=== PATIENT | female | born 2000 | race Caucasian/White ===

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

== ENCOUNTER 2021-05-01 07:24 | Emergency (ER) | payer OTHER, MEDICAID, SELFPAY ==
[2021-05-01 07:28] VITALS: BP 149/85; PULSE 72; RESP 16; TEMP 36.8; O2SAT 99
--- NOTE | 2021-05-01 07:30 | DI.RAD_ITS ---
Exam(s) XR LUMBAR SPINE AP, LAT EXAM: XR LUMBAR SPINE AP, LAT CLINICAL HISTORY: lower back pain, new. TECHNIQUE: 2D digital imaging was performed. COMPARISON: No exams were available for comparison FINDINGS: No evidence of fracture or listhesis. No pars defects. Sacroiliac joints appear unremarkable. No d isc space narrowing. Bone density normal IMPRESSION: No significant radiographic findings these three views of the lumbosacral spinal column. DATA REPOSITORY: RADIATION DOSE DELIVERED:
--- NOTE | 2021-05-01 07:44 | ED.GENADUL_ITS ---
Discharge Plan Disposition Patient Disposition: HOME Condition: Improving Discharge Details Clinical Impression: Spasm of lumbar paraspinous muscle Primary Care Provider: Marylou Ramirez ED Provider: Joo Krause Home Meds and New Rx's Prescriptions: New methocarbamol 500 mg tablet See Rx Instructions .ROUTE .COMPLEX PRN (Reason: Back pain or spasm) 5 Days Qty: 20 RF: 0 Continued (DME) Aerochamber MV Spacer See Rx Instructions .ROUTE .MEDSUPPLY Qty: 1 RF: 0 Flovent HFA 110 mcg/actuation HFA aerosol inhaler 1 puff inhalation BID Qty: 12 RF: 6 albuterol sulfate [ProAir HFA] 90 mcg/actuation HFA aerosol inhaler 2 puff inhalation 6XD PRN (Reason: shortness of breath or wheezing) Qty: 8.5 RF: 3 Kyleena 17.5 mcg/24 hrs (5 yrs) 19.5 mg intrauterine device 1 device IY ONCE RF: 0 escitalopram oxalate [Lexapro] 10 mg tablet 10 mg PO DAILY Qty: 30 RF: 1 Discharge Instructions Instructions: Muscle Spasm (ED) Additional Instructions: Tylenol and/or ibuprofen as needed for pain. May use methocarbamol as needed for pain and/or muscular spasm. See enclosed work note. Return to the ER for worsening pain, numbness or tingling of the lower extr emity, new weakness, or any other acute concerns. Follow-up with your regular doctor if not improved in 10 to 14 days time. 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 She then felt spasm which persisted for minutes and then was able to walk normally her car present to the ER. She has not been ill, has been taking her control pills states she is not . There is no radiation of the pain to the legs and there is no numbness or weakness. On exam she has reproducible muscular pain and spasm. Differential diagnosis would include cystic bony lesion, muscular spasm, less likely a disc bulge. Patient referred for x-ray, given Lidoderm patch, acetaminophen and methocarbamol. X-ray without evidence of process. Will hold patient out of work for 3 days, light duty for 10 days. Discussed with her home management including nonsteroidal and music, Lidoderm patches, carbo mall. She is stable and appropriate for discharge home time. HPI General Mode of arrival: ambulatory . Date/Time Provider Initiated Documentation: 05/01/21 07:34 . Limitations to Documentation: no limitations . Information obtained by: patient . History of Present Illness 20 year old F presents to the emergency department with the chief complaint of Low back pain, described as moderate, Quality is described as constant, Patient reports no radiation. Patient started experiencing this minute(s) and it has been constant. Rest improves symptom(s), Movement worsens symptoms . Patient notes other (No numbness, no radiation to the legs.); denies fever/chills, headaches, rash and weakness. Patient did receive the following treatments prior to arrival, none Related Data Home Medications Medication Instructions Recorded Confirmed levonorgestrel 1 device IY ONCE 04/13/19 05/01/21 inhalational spacing device #1 ea 11/11/20 03/21/21 albuterol sulfate 90 mcg/actuation 2 puff INHALATION 6XD PRN #8.5 g 01/31/21 05/01/21 aerosol inhaler fluticasone propionate 110 1 puff INHALATION BID #12 g 01/31/21 05/01/21 mcg/actuation HFA aerosol inhaler escitalopram oxalate 10 mg tablet 10 mg PO DAILY #30 tab 03/21/21 05/01/21 methocarbamol See Rx Instructions .ROUTE 05/01/21 .COMPLEX PRN 5 Days #20 tab Previous Rx's Medication Instructions Recorded inhalational spacing device #1 ea 11/11/20 albuterol sulfate 90 mcg/actuation 2 puff INHALATION 6XD PRN #8.5 g 01/31/21 aerosol inhaler fluticasone propionate 110 1 puff INHALATION BID #12 g 01/31/21 mcg/actuation HFA aerosol inhaler escitalopram oxalate 10 mg tablet 10 mg PO DAILY #30 tab 03/21/21 methocarbamol See Rx Instructions .ROUTE 05/01/21 .COMPLEX PRN 5 Days #20 tab Allergies Allergy/AdvReac Type Severity Reaction Status Date / Time No Known Allergies Allergy Verified 05/01/21 07:30 General Stated Complaint: Nk/Back Pain LON: 3 Review of Systems Narrative: Taking medications including control, not. No radiation of pain. No other recent illness. 8 systems reviewed and otherwise negative. PFSH All Active Problems (Updated 05/01/21 @ 07:49 by Joo Krause MD) Spasm of lumbar paraspinous muscle (Acute) Marijuana abuse (Acute) Smoking addiction (Acute) Wheezing (Acute) Anxiety (Chronic) IUD surveillance (Acute) Peritonsillar cellulitis (Acute) 07/22 with ENT eval recurrent 08/22 Elevated TSH (Chronic) Normal t4. Called and dicussed with endo. no intervention needed at this time. Medical History History of chicken pox age 7-8 years Surgical History H/O peritonsillar abscess drainage Hx of tonsillectomy Family History Other ALS (amyotrophic lateral sclerosis) paternal Alcohol abuse paternal, maternal Essential hypertension paternal Heart disease paternal- cardiomyopathy, SIA-goes thru male line cousin with SVT Hyperlipidemia PGM Mental disorder pat uncle- anxiety, pat great uncle committed suicide Myocardial infarction PGF, mat side Stroke pat great GF Cardiomyopathy PGF- SIA, all his siblings also Asthma paternal Brother Asthma outgrown Father Hyperlipidemia Social History Smoking/Tobacco Use Status: Former Tobacco Use Second Hand Exposure: Yes Smoking risk assessment performed?: Yes Alcohol Intake: current Alcohol Intake frequency: holidays/special occasions only Drug use: Daily Substance use type: marijuana Household members: family Education Level: college Details: Will be freshman fall 2020 Pets and animals: Yes (1 cat) Pets and animals: cat(s) Do you feel safe at home: Yes Do you feel safe in your relationship?: Yes Female Reproductive History Menstrual Age of Menarche: 14 control method: progestin IUCD History History 0 Para Hx # Term Pregnancies Multiple births Hx # Pregnancies Ectopic pregnancies AB induced Hx Number of Living Children AB spontaneous Exam Narrative Exam Narrative: GEN: awake, alert, oriented 3. Pleasant, well groomed, interactive. HEAD: Normocephalic, atraumatic ENT: Mucous membranes moist, oropharynx unremarkable, External ear exam unremarkable EYES: PERRL, EOMI NECK: Full ROM, no YVROSE, no menigismus CHEST/RESP: Nontender, clear to auscultation bilateral, no wheeze/rhonchi/rales CARDIOVASCULAR: RRR, no murmur, rub sherri. 2+ Rad pulse bilateral ABDOMEN: Soft, nontender, no mass. +Bowel sounds Back: At the upper lumbar spine there is paraspinous muscular spasm and pain with palpation. There is no midline step-off or deformity. No pain with palpation of sciatic notch bilaterally. EXT: Full ROM, no edema, no rash Neuro: Grossly normal neurologic exam, conversant, interactive. Psych: Speech fluent, thoughts congruent, affect normal Course Vital Signs Vital signs: Vital Signs Temperature 36.8 C 05/01/21 07:28 Pulse 72 05/01/21 07:28 Respiratory Rate 16 05/01/21 07:28 Blood Pressure 149/85 H 05/01/21 07:28 Pulse Oximetry 99 05/01/21 07:28 Temperature 36.8 C 05/01/21 07:28 Temperature Source Temporal Artery Scan 05/01/21 07:28 Pulse 72 05/01/21 07:28 Respiratory Rate 16 05/01/21 07:28 Respiratory Effort Non-Labored 05/01/21 07:32 Blood Pressure 149/85 H 05/01/21 07:28 Blood Pressure Position Sitting 05/01/21 07:28 Pulse Oximetry 99 05/01/21 07:28 Oxygen Delivery Method Room Air 05/01/21 07:28 Oxygen Flow Rate 0 05/01/21 07:28 PAWSS Have you Been Recently Intoxicated or Drunk Within the Last 30 days?: No Have you Ever Experienced Previous Episodes of Alcohol Withdrawal?: No Have you ever Experienced Withdrawal Seizures?: No Have you ever Experienced Delirium Tremens(DT)s?: No Have you ever undergone Alcohol Rehabilitation Treatment (i.e, inpt ot outpatient treatment programs)?: No Have you ever Experienced Blackouts?: No Have you ever Combined Alcohol with other Downers within the last 90 days?: No Have you ever Combined Alcohol with any other Substance of Abuse during the last 90 days?: No Positive Blood Alcohol level on Presentation? [PCS.BAL]: No Evidence of Increased Autonomic Activity (i.e. HR>120, tremor, sweating, agitati on, nausea)?: No Result: 0
[2021-05-01] MEDS: Methocarbamol 500 MG TAB 1000 MG PO (07:49)
[2021-05-01] MEDS: Lidocaine 5% Patch 1 PATCH TP (07:49)
[2021-05-01] MEDS: Acetaminophen 500 MG TAB 1000 MG PO (07:49)
[2021-05-01 08:19] VITALS: BP 128/78; PULSE 68; RESP 18; TEMP 36.7; O2SAT 99
== END 2021-05-01 08:26 | disposition home or self-care (01) ==
PROVIDERS: Emergency Provider Emergency Medicine; PCP Nurse Practitioner Family
DX: M62.830 Muscle spasm of back (principal); S39.82XA Other specified injuries of lower back, initial encounter; X50.0XXA Overexertion from strenuous movement or load, initial encounter; Y99.0 Civilian activity done for income or pay
CPT/HCPCS: 99283; 72100

== ENCOUNTER 2021-06-23 21:05 | Emergency (ER) | payer MEDICAID, SELFPAY ==
[2021-06-23 21:08] VITALS: BP 162/87; PULSE 81; RESP 14; TEMP 36; O2SAT 100
[2021-06-23] MEDS: Fluorescein STRIPS 100/BOX 1 MG (21:20)
[2021-06-23] MEDS: Tetracaine 0.5% 4 ML BTL (21:20)
--- NOTE | 2021-06-23 22:00 | W.ED.GENAD ---
Discharge Plan Disposition Patient Disposition: HOME Condition: Good Discharge Details Clinical Impression: Abrasion of cornea, left, Cat scratch, Eyelid laceration, right Primary Care Provider: Marylou Ramirez ED Provider: Riccardo Rubio Home Meds and New Rx's Prescriptions: New clindamycin HCl 150 mg capsule 450 mg PO Q8H 7 Days Qty: 63 0RF Continued (DME) Aerochamber MV Spacer See Rx Instructions .ROUTE .MEDSUPPLY Qty: 1 0RF Rx Instructions: As directed Flovent HFA 110 mcg/actuation HFA aerosol inhaler 1 puff inhalation BID Qty: 12 6RF Rx Instructions: may increase to 2 puff bid if needed albuterol sulfate [ProAir HFA] 90 mcg/actuation HFA aerosol inhaler 2 puff inhalation 6XD PRN (Reason: shortness of breath or wheezing) Qty: 8.5 3RF Kyleena 17.5 mcg/24 hrs (5 yrs) 19.5 mg intrauterine device 1 device IY ONCE 0RF escitalopram oxalate 10 mg tablet See Rx Instructions .ROUTE .COMPLEX Qty: 30 1RF Dose Instruction: TAKE ONE TABLET BY MOUTH EVERY DAY Rx Instructions: TAKE ONE TABLET BY MOUTH EVERY DAY Discharge Instructions Instructions: Corneal Abrasion (ED), Care For Your Absorbable Stitches (ED) Additional Instructions: At this time you have a corneal abrasion in your left eye, and a potential small scratch on your right eye as well. Please apply the ofloxacin drops, 2 drops to each eye twice daily. We did place a single absorbable suture in your right eyelid, please take the antibiotic clindamycin, 450 mg 3 times a day. Please also take a probiotic to help prevent diarrhea. We have given you a prescription for this antibiotic, please fill this and start taking it right away. You were scratched by a cat, and this has a high likelihood of infection. Infection if you notice increased redness, swelling, or pain in your eye or eyelid at all please return immediately for reassessment. The suture will fall out on its own in 7 to 10 days. Please keep it dry for the next 48 hours and then pat it gently with warm soap and water after this. 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 If you notice any worsening of your symptoms, or any new symptoms such as vomiting, diarrhea, fever, chills, shortness of breath, chest pain, numbness, weakness, or fainting , please return immediately to the emergency department for reevaluation. Please follow up with your primary care provider as soon as possible for reassessment and reevaluation. As always, it was a pleasure participating in your medical care today. Referrals: [facility] [Outside] Marylou Ramirez NP [Primary Care Provider] - Medical Decision Making This is a pleasant 20-year-old female who presents today for cat scratch to both her right eyelid and her left eye. Patient has had a kitten for the last 2 months. It does live with another house cat's immunizations are up-to-date. Today while the patient was in bed the cat ran up the covers, and ran up the patient face in an effort to get to a pillow. It unfortunately scraped both of her eyes and right eyelid. There is a notable amount of bleeding, immediate bruising and some swelling in the right eyelid the patient came to the ER further assessment. Patient did admit to mild amount of blurry vision which is since improved. She admit to pain in both eyes. She denies any other visual changes and states that her vision has normalized now. No other complaints at this time. Tetanus is updated within the last 10 years. Cat has been acting normally otherwise physical exam demonstrates a notable corneal abrasion to the left eye, and a superficial laceration to the right eyelid on the upper aspect. Due to the nature of the laceration a single suture was required for wound edge reapproximation. Single absorbable chromic gut suture was placed, patient tolerated this well the area was cleansed and irrigated with copious amounts of normal saline and chlorhexidine. Patient will be given ofloxacin drops for both eyes, she is not a contact lens wear. She will be given clindamycin to prevent cellulitis and infection for the eyelids. Visual acuity is normal. No other signs of trauma. Negative Christophe sign, no clinical evidence of globe rupture or perforation. Recommend close follow-up with Dr. Arnold. Discussed red flags which to return. Diagnosis corneal abrasion laceration secondary to cat scratch. I have extensively reviewed the treatment plan and discharge instructions with the patient. I have addressed all patient concerns at this time. The patient was made aware of what symptoms to monitor for that would warrant a return to the emergency department. Discussed the plan with the patient, they demonstrate verbal understanding and agreement with our assessment and plan at this time. The documentation in this chart was dictated using [employer] dictation software. Please excuse any dictation errors. HPI General Date/Time Provider Initiated Documentation: 06/23/21 21:08. HPI Narrative: This is a pleasant 20-year-old female who presents today for cat scratch to both her right eyelid and her left eye. Patient has had a kitten for the last 2 months. It does live with another house cat's immunizations are up-to-date. Today while the patient was in bed the cat ran up the covers, and ran up the patient face in an effort to get to a pillow. It unfortunately scraped both of her eyes and right eyelid. There is a notable amount of bleeding, immediate bruising and some swelling in the right eyelid the patient came to the ER further assessment. Patient did admit to mild amount of blurry vision which is since improved. She admit to pain in both eyes. She denies any other visual changes and states that her vision has normalized now. No other complaints at this time. Tetanus is updated within the last 10 years. Cat has been acting normally otherwise Related Data Home Medications Medication Instructions Recorded Confirmed levonorgestrel (Kyleena) 1 device IY ONCE 04/13/19 06/23/21 inhalational spacing device #1 ea 11/11/20 03/21/21 (Aerochamber MV) albuterol sulfate 90 mcg/actuation 2 puff INHALATION 6XD PRN #8.5 g 01/31/21 06/23/21 aerosol inhaler (ProAir HFA) fluticasone propionate 110 1 puff INHALATION BID #12 g 01/31/21 06/23/21 mcg/actuation HFA aerosol inhaler (Flovent HFA) escitalopram oxalate 10 mg tablet See Rx Instructions .ROUTE 06/19/21 06/23/21 .COMPLEX #30 tab clindamycin HCl 150 mg capsule 450 mg PO Q8H 7 Days #63 cap 06/23/21 Previous Rx's Medication Instructions Recorded inhalational spacing device #1 ea 11/11/20 (Aerochamber MV) albuterol sulfate 90 mcg/actuation 2 puff INHALATION 6XD PRN #8.5 g 01/31/21 aerosol inhaler (ProAir HFA) fluticasone propionate 110 1 puff INHALATION BID #12 g 01/31/21 mcg/actuation HFA aerosol inhaler (Flovent HFA) escitalopram oxalate 10 mg tablet See Rx Instructions .ROUTE 06/19/21 .COMPLEX #30 tab clindamycin HCl 150 mg capsule 450 mg PO Q8H 7 Days #63 cap 06/23/21 Allergies Allergy/AdvReac Type Severity Reaction Status Date / Time No Known Allergies Allergy Verified 06/23/21 21:17 General Stated Complaint: GenMedical LON: 4 Review of Systems All systems reviewed & are unremarkable except as noted in HPI and below PFSH All Active Problems Abrasion of cornea, left (Acute) Cat scratch (Acute) Eyelid laceration, right (Acute) Marijuana abuse (Acute) Smoking addiction (Acute) Wheezing (Acute) Anxiety (Chronic) IUD surveillance (Acute) Peritonsillar cellulitis (Acute) 07/22 with ENT eval recurrent 08/22 Elevated TSH (Chronic) Normal t4. Called and dicussed with endo. no intervention needed at this time. Medical History History of chicken pox age 7-8 years Surgical History H/O peritonsillar abscess drainage Hx of tonsillectomy Family History Other ALS (amyotrophic lateral sclerosis) paternal Asthma paternal Alcohol abuse paternal, maternal Essential hypertension paternal Heart disease paternal- cardiomyopathy, SIA-goes thru male line cousin with SVT Hyperlipidemia PGM Mental disorder pat uncle- anxiety, pat great uncle committed suicide Myocardial infarction PGF, mat side Stroke pat great GF Cardiomyopathy PGF- SIA, all his siblings also Brother Asthma outgrown Father Hyperlipidemia Social History Smoking/Tobacco Use Status: Current every day Tobacco Type: e-cigarettes Second Hand Exposure: Yes Smoking risk assessment performed?: Yes Alcohol Intake: current Alcohol Intake frequency: holidays/special occasions only Drug use: Daily Substance use type: marijuana Household members: family Education Level: college Details: Will be freshman fall 2020 Pets and animals: Yes (1 cat) Pets and animals: cat(s) Do you feel safe at home: Yes Do you feel safe in your relationship?: Yes Female Reproductive History Menstrual Age of Menarche: 14 control method: progestin IUCD History History 0 Para Hx # Term Pregnancies Multiple births Hx # Pregnancies Ectopic pregnancies AB induced Hx Number of Living Children AB spontaneous Exam Narrative Exam Narrative: 1.Const: Well-nourished, Well-developed, appearing stated age 2.Eyes: Patient's left eyelids demonstrate no abrasion to the upper or lower eyelid, however there is notable corneal abrasion. Fluorescein staining was performed retreats corneal abrasion in the left lower quadrant. Negative Christophe sign. Eversion of the lid demonstrates no evidence of trauma or foreign body. Right eye demonstrates no evidence of significant corneal abrasion fluorescein stain. Eversion of the lid shows no foreign bodies or rupture through the upper lid. The upper lid demonstrates a 1 cm laceration to the skin itself. No active bleeding. No evidence of deep tissue involvement currently. Pupils are equal round and reactive bilaterally. No evidence of hyphema or other trauma. No significant swelling. 3.ENT: Side for trauma noted under the eye section, there is no other evidence significant trauma small abrasion is noted over the bridge of the nose. 4.CVS: +S1/S2, No murmurs or gallops. Peripheral pulses 2+ and equal in all extremities. Brisk capillary refill in all extremities. 5.RESP: Unlabored respiratory effort. Clear to auscultation bilaterally. No wheezes rales or rhonchi 6.GI: Soft, Nontender/Nondistended, No hepatosplenomegaly. No guarding or rebound. 7.MSK: Normocephalic/Atraumatic, Extremities w/o deformity or ttp No cyanosis or clubbing, Normal movement of all extremities 8.Skin: Warm, Dry. No rashes or lesions. 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 Sensation grossly intact, no focal neurologic deficits. 10.Psych: (AAO) x3. Appropriate mood and affect Course Vital Signs Vital signs: Vital Signs Temperature 36.0 C L 06/23/21 21:08 Pulse 81 06/23/21 21:08 Respiratory Rate 14 06/23/21 21:08 Blood Pressure 162/87 H 06/23/21 21:08 Pulse Oximetry 100 06/23/21 21:08 Temperature 36.0 C L 06/23/21 21:08 Temperature Source Temporal Artery Scan 06/23/21 21:08 Pulse 81 06/23/21 21:08 Respiratory Rate 14 06/23/21 21:08 Respiratory Effort Non-Labored 06/23/21 21:21 Respiratory Depth Normal 06/23/21 21:21 Respiratory Pattern Normal 06/23/21 21:21 Blood Pressure 162/87 H 06/23/21 21:08 Blood Pressure Position Sitting 06/23/21 21:08 Pulse Oximetry 100 06/23/21 21:08 Oxygen Delivery Method Room Air 06/23/21 21:08 Oxygen Flow Rate 0 06/23/21 21:08 Pain Level 3 06/23/21 21:08 Procedures Laceration Laceration 1: Site: other (Eyelid upper) Side (If applicable): right Size (cm): 1 Description: linear Depth: simple, single layer Local Anesthetic: Lidocaine 1% Amount of anesthesia used (mL): 3 Pre-repair: wound explored, irrigated extensively and deep structures intact Skin layer closed with: other (Chromic gut) Size (cm): 5-0 Number of sutures: 1 Technique: simple, interrupted PAWSS Have you Been Recently Intoxicated or Drunk Within the Last 30 days?: No Have you Ever Experienced Previous Episodes of Alcohol Withdrawal?: No Have you ever Experienced Withdrawal Seizures?: No Have you ever Experienced Delirium Tremens(DT)s?: No Have you ever undergone Alcohol Rehabilitation Treatment (i.e, inpt ot outpatient treatment programs)?: No Have you ever Experienced Blackouts?: No Have you ever Combined Alcohol with other Downers within the last 90 days?: No Have you ever Combined Alcohol with any other Substance of Abuse during the last 90 days?: No Positive Blood Alcohol level on Presentation? [PCS.BAL]: No Evidence of Increased Autonomic Activity (i.e. HR>120, tremor, sweating, agitation, nausea)?: No Result: 0
[2021-06-23] MEDS: Clindamycin 150 MG CAP, 12 CAPS/BTL 450 MG PO (22:34)
== END 2021-06-23 22:37 | disposition home or self-care (01) ==
PROVIDERS: Emergency Provider Student in an Organized Health Care Education/Training Program; PCP Nurse Practitioner Family
DX: S05.02XA Injury of conjunctiva and corneal abrasion without foreign body, left eye, initial encounter (principal); S00.211A Abrasion of right eyelid and periocular area, initial encounter; W55.03XA Scratched by cat, initial encounter
CPT/HCPCS: 12011; 99283

== ENCOUNTER 2022-04-05 03:57 | Outpatient (CLI) | payer MEDICAID, SELFPAY ==
[2022-04-05 15:40] LABS: ALT 37 U/L (14-59); AST 21 U/L (15-37); Albumin 4.2 g/dL (3.4-5.0); Alkaline Phosphatase 74 U/L (46-116); Anion Gap 8.5 mmol/L (3-11); BUN 16 mg/dL (7-18); Bilirubin, Total 0.8 mg/dL (0.2-1.0); CO2 27.5 mmol/L (21.0-32.0); CREATININE 0.8 mg/dL (0.55-1.02); Calcium 9.4 mg/dL (8.5-10.1); Calculated LDL 100 mg/dL (<100); Chloride 100 mmol/L (98-107); Cholesterol 181 mg/dL (<200); Estimated GFR 108.11 (mL/min/1.73m2); Glucose 84 mg/dL (74-106); HDL Cholesterol 64 mg/dL (40-60); Potassium 3.7 mmol/L (3.5-5.1); Sodium 136 mmol/L (136-145); TSH 3.73 uIU/mL (0.36-3.74); Total Protein 8.1 g/dL (6.4-8.2); Triglyceride 87 mg/dL (<150)
[2022-04-05 16:03] LABS: Hemoglobin A1C 5.1 % (<5.7)
[2022-04-05 16:09] LABS: FREE T4 1.06 ng/dL (0.76-1.46)
[2022-04-09 09:32] LABS: Thyroglobulin Antibody <15 U/mL (<=60); Thyroperoxidase Antibody <28 U/mL (<=60)
== END 2022-04-05 03:58 | disposition home or self-care (01) ==
LOC: LBO 03:57
PROVIDERS: PCP Nurse Practitioner Family; Visit Provider Nurse Practitioner Family
DX: E03.8 Other specified hypothyroidism (principal); F41.8 Other specified anxiety disorders; Z79.899 Other long term (current) drug therapy
CPT/HCPCS: 36415; 80053; 80061; 86376; 83036; 84439; 84443

== ENCOUNTER 2022-04-23 02:18 | Emergency (ER) | payer MEDICAID, SELFPAY ==
[2022-04-23 02:21] VITALS: BP 133/81; PULSE 96; RESP 16; TEMP 36.5; O2SAT 96
--- NOTE | 2022-04-23 02:33 | ED.GENADUL_ITS ---
Discharge Plan Disposition Patient Disposition: Home Condition: Improving Discharge Details Clinical Impression: COVID-19 Primary Care Provider: Shahrzad Luna ED Provider: Joo Krause Home Meds and New Rx's Prescriptions: Continued (DME) Aerochamber MV Spacer See Rx Instructions .ROUTE .MEDSUPPLY Qty: 1 0RF Rx Instructions: As directed Kyleena 17.5 mcg/24 hrs (5 yrs) 19.5 mg intrauterine device 1 device IY ONCE escitalopram oxalate 20 mg tablet 20 mg PO DAILY Qty: 90 3RF albuterol sulfate [ProAir HFA] 90 mcg/actuation HFA aerosol inhaler 2 puff inhalation 6XD PRN (Reason: shortness of breath or wheezing) Qty: 8.5 3RF fluticasone propionate [Flovent HFA] 110 mcg/actuation HFA aerosol inhaler 2 puff inhalation BID Qty: 12 3RF Discharge Instructions Instructions: COVID-19 (Coronavirus Disease 2019) (ED) Additional Instructions: Home to rest this evening. Small, frequent sips of fluids to maintain hydration. May use Tylenol and or ibuprofen as needed for pain. Follow-up with regular doctor if not improved in 5 to 7 days time. Stand Alone Forms: POSITIVE COVID-19/NO TESTING, Work Release Medical Decision Making 21-year-old female presents from home with 2 days of cough, congestion, malaise, body ache, subjective fever. She also has longstanding low back pain that seems to be worsening. She does not have lower extremity weakness, no numbness, no change to urinary habits. Patient's vital signs are unremarkable. Differential diagnosis includes viral syndrome. She was given Tylenol and screening swab was obtained. Patient positive for COVID. She is counseled as to outpatient management and stable for discharge. HPI General Mode of arrival: ambulatory . Date/Time Provider Initiated Documentation: 04/23/22 02:26 . Limitations to Documentation: no limitations . Information obtained by: patient . History of Present Illness 21 year old F presents to the emergency department with the chief complaint of Cough, congestion, body ache, described as moderate, Quality is described as dull, and is localized to the chest. Patient reports no radiation. Patient star maria teresa experiencing this day(s) and it has been constant. No relieving factors improve symptom(s), No exacerbating factors reported . Patient notes cough, fever/chills, headaches and malaise; denies chest pain, shortness of breath and weakness. Patient did receive the following treatments prior to arrival, none Related Data Home Medications Medication Instructions Recorded Confirmed levonorgestrel 17.5 mcg/24 hrs 1 device intrauterine ONCE 04/13/19 04/02/22 (5yrs) 19.5mg intrauterine device (Kyleena) inhalational spacing device #1 ea 11/11/20 04/02/22 (Aerochamber MV spacer) albuterol sulfate 90 mcg/actuation 2 puff inhalation 6XD PRN 02/26/22 04/02/22 aerosol inhaler (ProAir HFA) shortness of breath or wheezing #8.5 grams escitalopram oxalate 20 mg tablet 20 mg PO DAILY #90 tabs 02/26/22 04/02/22 fluticasone propionate 110 2 puff inhalation BID #12 grams 02/26/22 04/02/22 mcg/actuation HFA aerosol inhaler (Flovent HFA) Previous Rx's Medication Instructions Recorded inhalational spacing device #1 ea 11/11/20 (Aerochamber MV spacer) albuterol sulfate 90 mcg/actuation 2 puff inhalation 6XD PRN 02/26/22 aerosol inhaler (ProAir HFA) shortness of breath or wheezing #8.5 grams escitalopram oxalate 20 mg tablet 20 mg PO DAILY #90 tabs 02/26/22 fluticasone propionate 110 2 puff inhalation BID #12 grams 02/26/22 mcg/actuation HFA aerosol inhaler (Flovent HFA) Allergies Allergy/AdvReac Type Severity Reaction Status Date / Time No Known Allergies Allergy Verified 04/02/22 14:33 General Stated Complaint: Nk/Back Pain LON: 4 Review of Systems Narrative: Longstanding low back pain for which she is in physical therapy. No known sick contacts. No shortness of breath. No nausea or vomiting running. 8 systems were reviewed and otherwise negative PFSH All Active Problems (Updated 04/23/22 @ 03:16 by Joo Krause MD) COVID-19 (Acute) Asthma (Chronic) Chronic low back pain (Chronic) Subclinical hypothyroidism (Chronic) Major depressive disorder, recurrent (Chronic) Generalized anxiety disorder (Chronic) IUD surveillance (Chronic) Kyleena inserted 04/13/19 Medical History COVID-19 virus infection (~12/2020) Surgical History H/O peritonsillar abscess drainage Hx of tonsillectomy Family History Mother No problems noted. Father Alcohol abuse Depression Hyperlipidemia Substance use disorder Thyroid disorder Sister No problems noted. Sister No problems noted. Sister No problems noted. Brother Alcohol abuse Depression Substance use disorder Thyroid disorder Brother No problems noted. Paternal Grandfather Melanoma Heart disease Paternal Grandmother No problems noted. Maternal Grandfather No problems noted. Maternal Grandmother No problems noted. Social History Smoking/Tobacco Use Status: Current every day Tobacco Type: e-cigarettes Tobacco: How many years used: 2 Quit status: not considering quitting Second Hand Exposure: Yes Smoking risk assessment performed?: Yes Alcohol Intake: current Alcohol Intake frequency: holidays/special occasions only Alcohol type: hard liquor Drug use: Daily Substance use type: marijuana Caregiver/Support person: No Household members: family Housing: house Communication Needs: None Education Level: college Details: Will be freshman fall 2020 Do you need help understanding health information?: Never Pets and animals: Yes (1 cat) Pets and animals: cat(s) Sexually active: Yes Do you think of yourself as: bisexual Current gender identity: female What is your relationship status?: living with partner How often do you talk on the phone with friends or family?: three or more times per week How often do you get together with friends or relatives?: once per week How often do you attend lutheran or congregation services?: decline to answer Do you belong to any clubs or organized social groups?: no Panel score (0-1 are the most socially isolated patients): 2 What type of physical activity do you participate in: none Frequency: does not exercise Shannon/Roman Catholic: Agnostic Special shannon needs: No Seatbelt use: always Helmet use: Yes 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 Pleasant, well groomed, interactive. HEAD: Normocephalic, atraumatic ENT: Mucous membranes moist, oropharynx unremarkable, External ear exam unremarkable EYES: PERRL, EOMI NECK: Full ROM, no YVROSE, no menigismus CHEST/RESP: Nontender, clear to auscultation bilateral, no wheeze/rhonchi/rales CARDIOVASCULAR: RRR, no murmur, rub sherri. 2+ Rad pulse bilateral ABDOMEN: Soft, nontender, no mass. +Bowel sounds EXT: Full ROM, no edema, no rash. Normal sensation throughout including saddle distribution. Neuro: Grossly normal neurologic exam, conversant, interactive. Narrow-base gait with good heel strike. Psych: Speech fluent, thoughts congruent, affect normal Course Vital Signs Vital signs: Vital Signs Temperature 36.5 C 04/23/22 02:21 Pulse 96 H 04/23/22 02:21 Respiratory Rate 16 04/23/22 02:21 Blood Pressure 133/81 04/23/22 02:21 Pulse Oximetry 96 04/23/22 02:21 Temperature 36.5 C 04/23/22 02:21 Temperature Source Oral 04/23/22 02:21 Pulse 96 H 04/23/22 02:21 Respiratory Rate 16 04/23/22 02:21 Respiratory Effort 04/23/22 02:24 Blood Pressure 133/81 04/23/22 02:21 Pulse Oximetry 96 04/23/22 02:21 Oxygen Delivery Method Room Air 04/23/22 02:21 Oxygen Flow Rate 0 04/23/22 02:21 Pain Level 7 04/23/22 02:21
[2022-04-23] MEDS: Acetaminophen 500 MG TAB 1000 MG PO (02:38)
[2022-04-23 03:14] LABS: Influenza A PCR Negative (Negative); Influenza B PCR Negative (Negative); RSV PCR Negative (Negative)
--- NOTE | 2022-04-23 03:16 | NUR.NOTE ---
Nursing Note: CRITICAL LAB = COVID +. NOTIFIED.
[2022-04-23 03:17] LABS: COVID-19 PCR Positive (Negative); Source Nasopharynx
== END 2022-04-23 03:25 | disposition home or self-care (01) ==
PROVIDERS: Emergency Provider Emergency Medicine; PCP Nurse Practitioner Family
DX: U07.1 COVID-19 (principal)
CPT/HCPCS: 87637; 99283

== ENCOUNTER → 2023-04-23 01:44 | Outpatient (CLI) | payer MEDICAID, SELFPAY | PROVIDERS: PCP Nurse Practitioner Family; Visit Provider Nurse Practitioner Family | DX: R01.1 Cardiac murmur, unspecified (principal) | CPT/HCPCS: 93306 ==

== ENCOUNTER 2023-06-08 16:42 | Emergency (ER) | payer MEDICAID, SELFPAY ==
[2023-06-08 16:44] VITALS: BP 162/88; PULSE 70; RESP 18; TEMP 36.4; O2SAT 100
--- NOTE | 2023-06-08 16:49 | ED.GENADUL_ITS ---
HPI General Mode of arrival: ambulatory . Date/Time Provider Initiated Documentation: 06/08/23 16:47 . Limitations to Documentation: no limitations . Information obtained by: patient, RN notes reviewed and old records reviewed . 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 Distal CMS intact, unable to stop the bleeding prior to arrival. movement intact, last TDap 2013. Related Data Home Medications Medication Instructions Recorded Confirmed levonorgestrel 17.5 mcg/24 hrs 1 device intrauterine ONCE 04/13/19 06/08/23 (5yrs) 19.5mg intrauterine device (Kyleena) inhalational spacing device #1 ea 11/11/20 02/07/23 (Aerochamber MV spacer) albuterol sulfate 90 mcg/actuation 2 puff inhalation 6XD PRN 02/26/22 06/08/23 aerosol inhaler (ProAir HFA) shortness of breath or wheezing #8.5 grams Previous Rx's Medication Instructions Recorded inhalational spacing device #1 ea 11/11/20 (Aerochamber MV spacer) albuterol sulfate 90 mcg/actuation 2 puff inhalation 6XD PRN 02/26/22 aerosol inhaler (ProAir HFA) shortness of breath or wheezing #8.5 grams Allergies Allergy/AdvReac Type Severity Reaction Status Date / Time No Known Allergies Allergy Verified 06/08/23 16:46 General Stated Complaint: Laceration LON: 3 Review of Systems All systems reviewed & are unremarkable except as noted in HPI and below Integumentary/Breasts Skin/Breast: Reports as per HPI and Reports wounds Exam Extrem Left upper extremity: hand Details: laceration thumb ulnar aspect distal Details: avulsion, actively bleeding, involving subcutaneous tissue and with motor nerve function intact Hand/finger images: 2 1. Approximate 0.5 cm Avulsion type laceration involving the nail, actively bleeding, non-pulsatile. Course Vital Signs Vital signs: Vital Signs Temperature 36.4 C L 06/08/23 16:44 Pulse 70 06/08/23 16:44 Respiratory Rate 18 06/08/23 16:44 Blood Pressure 162/88 H 06/08/23 16:44 Pulse Oximetry 100 06/08/23 16:44 Temperature 36.4 C L 06/08/23 16:44 Temperature Source Temporal Artery Scan 06/08/23 16:44 Pulse 70 06/08/23 16:44 Respiratory Rate 18 06/08/23 16:44 Respiratory Effort Normal, Non-Labored 06/08/23 16:47 Blood Pressure 162/88 H 06/08/23 16:44 Blood Pressure Position Sitting 06/08/23 16:44 Pulse Oximetry 100 06/08/23 16:44 Oxygen Delivery Method Room Air 06/08/23 16:44 Oxygen Flow Rate 0 06/08/23 16:44 Medical Decision Making 22 year old female presents to the ED with 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 Distal CMS intact, unable to stop the bleeding prior to arrival. movement intact, last T- Dap 2013. Pressure dressing applied in triage and hand elevated. At this time it appears non-suturable, will attempt silver nitrate, surgicel dressing and Xeroorm guaze. If unsuccessful will consider TXA topically. 1704: Finger tourniquet applied, patient tolerated well. Silver nitrate used to cauterize bleeding area. Mostly controlled. Dermabond applied. Surgicel gauze. No further bleeding through Dressing noted. Will continue to observe for approximately 10-15 minutes. Patient given TDAP booster here in Department. No further bleeding noted on reevaluation, patient discharged with home care instructions and strict return instructions. Patient instructed to take the dressing off in 24 to 48 hours under running water. This text was generated using [employer] dictation system, please disregard any oddities of phrase or misspellings. Quality:SDOH Health Related Social Needs: 2 No Data to Display PFSH All Active Problems (Updated 06/08/23 @ 17:45 by Mana Hou NP) Laceration of left thumb with damage to nail (Acute) Asthma (Chronic) Chronic low back pain (Chronic) Major depressive disorder, recurrent (Chronic) Generalized anxiety disorder (Chronic) IUD surveillance (Chronic) Kyleena inserted 04/13/19 Obesity (Chronic) Medical History COVID-19 virus infection (~12/2020) Surgical History H/O peritonsillar abscess drainage Hx of tonsillectomy Family History Mother No problems noted. Father Alcohol abuse Depression Hyperlipidemia Substance use disorder Thyroid disorder Sister No problems noted. Sister No problems noted. Sister No problems noted. Brother Alcohol abuse Depression Substance use disorder Thyroid disorder Brother No problems noted. Paternal Grandfather Melanoma Heart disease Paternal Grandmother No problems noted. Maternal Grandfather No problems noted. Maternal Grandmother Lymphoma Social History Smoking/Tobacco Use Status: Current every day Tobacco Type: e-cigarettes Tobacco: How many years used: 2 Quit status: not considering quitting Second Hand Exposure: Yes Smoking risk assessment performed?: Yes Alcohol Intake: current Alcohol Intake frequency: holidays/special occasions only Alcohol type: hard liquor Drug use: Daily Substance use type: marijuana Caregiver/Support person: No Household members: significant other and friend(s) Housing: house Communication Needs: None Education Level: college Details: Will be freshman fall 2020 Do you need help understanding health information?: Never Pets and animals: Yes (2) Pets and animals: cat(s) Sexually active: Yes Do you think of yourself as: bisexual Current gender identity: female What is your relationship status?: living with partner How often do you talk on the phone with friends or family?: three or more times per week How often do you get together with friends or relatives?: once per week How often do you attend baptism or restorationist services?: decline to answer Do you belong to any clubs or organized social groups?: no Panel score (0-1 are the most socially isolated patients): 2 What type of physical activity do you participate in: none Frequency: does not exercise Shannon/Holiness: Agnostic Special shannon needs: No Seatbelt use: always Helmet use: Yes 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 Do you feel safe at home: Yes Do you feel safe in your relationship?: Yes Female Reproductive History Menstrual Age of Menarche: 14 control method: progestin IUCD History History 2 0 Para Hx # Term Pregnancies Multiple births Hx # Pregnancies Ectopic pregnancies AB induced Hx Number of Living Children AB spontaneous PAWSS Have you Been Recently Intoxicated or Drunk Within the Last 30 days?: No Have you Ever Experienced Previous Episodes of Alcohol Withdrawal?: No Have you ever Experienced Withdrawal Seizures?: No Have you ever Experienced Delirium Tremens(DT)s?: No Have you ever undergone Alcohol Rehabilitation Treatment (i.e, inpt ot outpatient treatment programs)?: No Have you ever Experienced Blackouts?: No Have you ever Combined Alcohol with other Downers within the last 90 days?: No Have you ever Combined Alcohol with any other Substance of Abuse during the last 90 days?: No Positive Blood Alcohol level on Presentation? [PCS.BAL]: No Evidence of Increased Autonomic Activity (i.e. HR>120, tremor, sweating, agitation, nausea)?: No Result: 0 Discharge Plan Disposition Patient Disposition: Home Discharge Details Clinical Impression: Laceration of left thumb with damage to nail Primary Care Provider: Shahrzad Luna ED Provider: Mana Hou Home Meds and New Rx's Prescriptions: No Action (DME) Aerochamber MV Spacer See Rx Instructions .ROUTE .MEDSUPPLY Qty: 1 0RF Rx Instructions: As directed Kyleena 17.5 mcg/24 hrs (5 yrs) 19.5 mg intrauterine device 1 device IY ONCE albuterol sulfate [ProAir HFA] 90 mcg/actuation HFA aerosol inhaler 2 puff inhalation 6XD PRN (Reason: shortness of breath or wheezing) Qty: 8.5 3RF Discharge Instructions Instructions: Laceration (ED) Additional Instructions: Keep dressing on for the next 24 to 48 hours. When you do take the dressing off running under running water to remove do not pull it off. Be seen sooner for any signs of infection including red streaks up your thumb. Keep it clean and dry. You may wash under running soap and water. Keep it covered while at work. Allow to air dry at least 1 to 2 hours a day. You were given a tetanus shot today. Please take Tylenol or Ibuprofen with food every 4-6 hours as needed for pain and swelling. Follow up with primary care provider in 3-5 days. Return to ED sooner if any worsening or concerns. Increase oral fluids. Stand Alone Forms: Work Release Referrals: Shahrzad Luna NP [Primary Care Provider] - 5 days Discharge Data Discharge Date/Time-TO BE ENTERED AT DEPARTURE: 06/08/23 17:55
[2023-06-08] MEDS: Cellulose,Oxidized 2X3 PKT 1 EACH MC (17:02)
[2023-06-08] MEDS: Silver Nitrate Stick 1 EACH TP (17:02)
[2023-06-08 17:50] VITALS: BP 162/88; PULSE 70; RESP 18; TEMP 36.4; O2SAT 100
== END 2023-06-08 17:55 | disposition home or self-care (01) ==
PROVIDERS: Emergency Provider Registered Nurse Emergency; PCP Nurse Practitioner Family
DX: S61.112A Laceration without foreign body of left thumb with damage to nail, initial encounter (principal); W26.0XXA Contact with knife, initial encounter
CPT/HCPCS: 12001; 90471; 90715

== ENCOUNTER 2023-10-14 13:17 | Outpatient (REF) | payer SELFPAY ==
--- NOTE | 2023-10-14 10:40 | PAPFT_PTH ---
PATIENT: Deny Alvares LOC: [facility] U#:[id number] AGE/SX: 22/F ROOM: RE10/14/[address]: Rona Kelley MD : 2000 BED: DIS: 10/14/2023 SPEC #: [id number] RECD: 10/14/23 13:30 STATUS: SARAI JOSE #: [id number] FLORI: 10/14/23 10:[address]: Rona Kelley DEPT: [facility] Cytology RECD BY: Sirisha Panad ENTERED: 10/14/23 13:30 SP TYPE: PAPFT JOHAN DR: ENE Fletcher Tissues: 1 - CX/ENDOCX FOR PAP SMEARS Procedures: PAP THIN PREP/[facility] Screening Comments: [id number]
== END 2023-10-14 13:18 | disposition home or self-care (01) ==
LOC: LBN 13:17
PROVIDERS: PCP Nurse Practitioner Family; Visit Provider Obstetrics & Gynecology
DX: Z12.4 Encounter for screening for malignant neoplasm of cervix (principal)
CPT/HCPCS: 88142

== ENCOUNTER 2024-04-24 12:15 | Emergency (ER) | payer SELFPAY ==
[2024-04-24 12:18] VITALS: BP 135/92; PULSE 70; RESP 10; TEMP 36.6; O2SAT 99
--- NOTE | 2024-04-24 12:36 | ED.GENADUL_ITS ---
Discharge Plan Disposition Patient Disposition: Home Condition: Stable Discharge Details Clinical Impression: Finger laceration Primary Care Provider: Shahrzad Luna ED Provider: Gigi Collier Home Meds and New Rx's Prescriptions: Continued (DME) Aerochamber MV Spacer See Rx Instructions .ROUTE .MEDSUPPLY Qty: 1 0RF Rx Instructions: As directed Kyleena 17.5 mcg/24 hrs (5 yrs) 19.5 mg intrauterine device 1 device IY ONCE albuterol sulfate [ProAir HFA] 90 mcg/actuation HFA aerosol inhaler 2 puff inhalation 6XD PRN (Reason: shortness of breath or wheezing) Qty: 8.5 3RF Discharge Instructions Instructions: Laceration Repair With Stitches ED Additional Instructions: Laceration repaired without complication. Please keep the initial bulky dressing on for the first 48 hours, then change daily. Rest, elevate, cool compresses every 2 hours for 20 minutes. [id number] Tylenol and/or Motrin as directed for discomfort. Please watch for new or worsening symptoms, signs of infection, etc. and return immediately. Otherwise return here or follow-up with your PCP in about 7-10 days for suture removal. HPI General Mode of arrival: ambulatory . Date/Time Provider Initiated Documentation: 04/24/24 12:22 . Limitations to Documentation: no limitations . Information obtained by: patient . History of Present Illness 23 year old F presents to the emergency department with the chief complaint of R thumb lac, described as mild, with intensity rated at 3. Quality is described as aching, and is localized to the right and upper extremity. Patient reports no radiation. Patient started experiencing this minute(s) (30) and it has been constant. No relieving factors improve symptom(s), No exacerbating factors reported . Patient notes no other symptoms.. Patient did receive the following treatments prior to arrival, none Related Data Home Medications ?Medication ?Instructions ?Recorded ?Confirmed levonorgestrel 17.5 mcg/24 hr (up 1 device intrauterine ONCE 04/13/19 04/24/24 to 5 yrs) 19.5mg intrauterine device (Kyleena) inhalational spacing device #1 ea 11/11/20 04/24/24 (Aerochamber MV spacer) albuterol sulfate 90 mcg/actuation 2 puff inhalation 6XD PRN 02/26/22 04/24/24 aerosol inhaler (ProAir HFA) shortness of breath or wheezing #8.5 grams Previous Rx's ?Medication ?Instructions ?Recorded inhalational spacing device #1 ea 11/11/20 (Aerochamber MV spacer) albuterol sulfate 90 mcg/actuation 2 puff inhalation 6XD PRN 02/26/22 aerosol inhaler (ProAir HFA) shortness of breath or wheezing #8.5 grams Allergies Allergy/AdvReac Type Severity Reaction Status Date / Time Latex, Natural Rubber Allergy Skin Rash Unverified 04/24/24 12:20 General Stated Complaint: Laceration LON: 4 Review of Systems Constitutional Constitutional: Denies fever(s) Musculoskeletal Musculoskeletal: Denies numbness, Denies stiffness and Denies tingling Integumentary/Breasts Skin/Breast: Denies rash Neurologic Neurologic: Denies numbness and Denies tingling Exam Const General: cooperative, healthy appearing, comfortable and no acute distress Orientation: alert and awake HENMT Head: normal to inspection, normocephalic and atraumatic Mouth: moist mucous membranes Eyes Conjunctivae: conjunctivae normal Neck Neck: normal visual inspection, trachea midline and supple Resp Effort & Inspection: normal respiratory effort and able to speak in complete sentences Cardio Rate: regular rate Rhythm: regular rhythm Skin General skin exam: no rashes or lesions noted Neuro General: patient alert, patient awake, moves all extremities and no focal motor deficits Cognition: normal cognition Speech: speech normal Gait: normal gait Motor: muscle tone normal throughout Sensory Exam: no sensory deficits noted Extrem General: full ROM and capillary refill normal Hand/finger images: 2 1. 1.5 cm well-approximated laceration. Slight bloody ooze noted. Mild discomfort. No foreign body. Full range of motion. Neuro, vascular, head intact. Normal capillary refill. Psych Appearance: grossly normal Mental Status: mental status grossly normal Course Vital Signs Vital signs: Vital Signs Temperature 36.6 C 04/24/24 12:18 Pulse 70 04/24/24 12:18 Respiratory Rate 10 L 04/24/24 12:18 Blood Pressure 135/92 H 04/24/24 12:18 Pulse Oximetry 99 04/24/24 12:18 Temperature 36.6 C 04/24/24 12:18 Temperature Source Oral 04/24/24 12:18 Pulse 70 04/24/24 12:18 Respiratory Rate 10 L 04/24/24 12:18 Blood Pressure 135/92 H 04/24/24 12:18 Blood Pressure Position Sitting 04/24/24 12:18 Pulse Oximetry 99 04/24/24 12:18 Oxygen Delivery Method Room Air 04/24/24 12:18 Oxygen Flow Rate 0 04/24/24 12:18 Pain Level 6 04/24/24 12:18 Procedures Laceration Right thumb: Site: upper extremity Side (If applicable): right Size (cm): 1.5 Description: linear Depth: simple, single layer Local anesthetic: Lidocaine 1% Amount of anesthesia used (mL): 4 Pre-repair: wound explored, irrigated extensively and deep structures intact Skin layer closed with: nylon Size (cm): 4-0 Number of sutures: 3 Technique: simple, interrupted Medical Decision Making 23-year-old female, [id number], tetanus status updated last year, presents for a right thumb injury she sustained at work just prior to arrival on a tin can. No other questions or concerns at this time. No evidence of foreign body. Neuro, vascular, tendon intact. Performed a digital block and repaired without complication. Dressing applied. Discussed conservative measures such as elevation, cool compresses, Tylenol, Motrin, etc. Will keep the area clean and dry. Will monitor for signs of infection return immediately to the ER. Otherwise we will follow-up with PCP or in the ER in 7-10 days for suture removal. Standard discharge and return precautions were provided. Patient understands, is agreeable to this plan, and has no additional questions or concerns upon discharge. This documentation was generated using [employer] system, please disregard any oddities of phrase or misspellings. Medical Records Medical records reviewed: Yes I reviewed the patient's medical records. Quality:SDOH Health Related Social Needs: 2 No Data to Display PFSH All Active Problems (Updated 04/24/24 @ 12:55 by ROMEL Ronquillo) Finger laceration (Acute) Asthma (Chronic) Chronic low back pain (Chronic) Major depressive disorder, recurrent (Chronic) Generalized anxiety disorder (Chronic) Obesity (Chronic) Medical History Vulvar cyst IUD surveillance Kyleena inserted 04/13/19 COVID-19 virus infection (~12/2020) Surgical History Hx of tonsillectomy H/O peritonsillar abscess drainage Family History Mother No problems noted. Father Alcohol abuse Depression Hyperlipidemia Substance use disorder Thyroid disorder Sister No problems noted. Sister No problems noted. Sister No problems noted. Brother Alcohol abuse Depression Substance use disorder Thyroid disorder Brother No problems noted. Paternal Grandfather Melanoma Heart disease Paternal Grandmother No problems noted. Maternal Grandfather No problems noted. Maternal Grandmother Lymphoma Social History Smoking/Tobacco Use Status: Current every day Tobacco Type: e-cigarettes Tobacco: How many years used: 4 Quit status: considering quitting Second Hand Exposure: Yes Smoking risk assessment performed?: Yes Alcohol Intake: current Alcohol Intake frequency: holidays/special occasions only Alcohol type: hard liquor Drug use: Daily Substance use type: marijuana Caregiver/Support person: No Household members: significant other and friend(s) Housing: house Communication Needs: None Education Level: college Details: Will be freshman fall 2020 Do you need help understanding health information?: Never Pets and animals: Yes (2) Pets and animals: cat(s) Sexually active: Yes Do you think of yourself as: bisexual Current gender identity: female What is your relationship status?: living with partner How often do you talk on the phone with friends or family?: three or more times per week How often do you get together with friends or relatives?: once per week How often do you attend hindu or caodaism services?: decline to answer Do you belong to any clubs or organized social groups?: no Panel score (0-1 are the most socially isolated patients): 2 What type of physical activity do you participate in: none Frequency: does not exercise Shannon/Latter-Day: Agnostic Special shannon needs: No Seatbelt use: always Helmet use: Yes Drive intox or ride w/intox mixer driver: No Do you feel safe at home: Yes Do you feel safe in your relationship?: Yes Female Reproductive History Menstrual Age of Menarche: 14 control method: progestin IUCD History History 2 0 Para Hx # Term Pregnancies Multiple births Hx # Pregnancies Ectopic pregnancies AB induced Hx Number of Living Children AB spontaneous
[2024-04-24] MEDS: Lidocaine 1% Pres-Free 5 ML VIAL (13:07)
== END 2024-04-24 13:08 | disposition home or self-care (01) ==
LOC: ER 13:36
PROVIDERS: Emergency Provider Physician Assistant; PCP Nurse Practitioner Family
DX: S61.011A Laceration without foreign body of right thumb without damage to nail, initial encounter (principal); W26.8XXA Contact with other sharp object(s), not elsewhere classified, initial encounter; Y99.0 Civilian activity done for income or pay
CPT/HCPCS: 12002; 99282; J2003

== ENCOUNTER 2024-05-18 15:50 | Outpatient (REF) | payer BC, SELFPAY ==
[2024-05-20 12:52] LABS: Chlamydia Result Negative (Negative); GC Result Negative (Negative)
== END 2024-05-18 15:51 | disposition home or self-care (01) ==
LOC: LBN 15:50
PROVIDERS: PCP Nurse Practitioner Family; Visit Provider Nurse Practitioner Women's Health
DX: Z11.3 Encounter for screening for infections with a predominantly sexual mode of transmission (principal); Z32.00 Encounter for pregnancy test, result unknown; Z30.431 Encounter for routine checking of intrauterine contraceptive device; Z30.433 Encounter for removal and reinsertion of intrauterine contraceptive device
CPT/HCPCS: 87491; 87591